=== PATIENT | female | born 1995 | race Caucasian/White ===

== ENCOUNTER 2022-05-18 19:22 | Emergency (ER) | payer MEDICAID, OTHER ==
[~2022-05-18] VITALS: Ht 152.4 cm; Wt 59.0 kg
[~2022-05-18 19:22] MED LIST: ACHD5005 PO; ACYC400T21 PO; CEPH500T PO; DOCU-143 PO; DOCU100C37 PO; DOXY25TA56 PO; HYDR-4226 PO; IBUP-1780 PO; Magic Mouth Wash PO; OXYC-556 PO; OXYC1TAB12 PO; PNV91TAB3 PO; PREN1TAB79 PO; UNISOM25 M1 PO; [UNRECOGNIZED DRUG - OTHER] PO; lidocain; magic mouth wash PO
[2022-05-18 19:34] VITALS: BP 119/92
--- NOTE | 2022-05-18 19:37 | ED General ---
General Chief Complaint: General Problems/Pain Stated Complaint: JOINT PAIN History of Present Illness Date Seen by Provider: May 18, 2022 Time Seen by Provider: 19:32 Initial Comments 27-year-old female is here with complaints of multiple joint pains which began around 10 days ago. Patient has joint pain and swelling of her elbows, wrists, knee, ankle, and appears to be migratory in nature. Denies falls, injury, trauma, fever and chills, rashes, abdominal pain, recent sore throat, cardiac issues, nausea and vomiting, diarrhea or constipation. Patient has not had any history of recent travel or known sick contacts. Patient takes naproxen at home for the pain with moderate relief. Patient states that she has requisition approver stiffness in her joints as well. Patient has a family history of arthritis in her mother and aunts. Allergies and Home Medications Patient Home Medication List Home Medication List Reviewed: Yes Review of Systems Review of Systems Constitutional: no symptoms reported EENTM: no symptoms reported Respiratory: no symptoms reported Cardiovascular: no symptoms reported Gastrointestinal: no symptoms reported Genitourinary: no symptoms reported Musculoskeletal: joint pain, joint swelling Skin: no symptoms reported Psychiatric/Neurological: No Symptoms Reported Hematologic/Lymphatic: No Symptoms Reported Immunological/Allergic: no symptoms reported Physical Exam Vital Signs Vital Signs - First Documented 05/18/22 19:34 Temp 37.0 Pulse 126 Resp 16 B/P (MAP) 119/92 (101) Capillary Refill : Height, Weight, BMI Height: '" Weight: lbs. oz. kg; BMI Method: General Appearance: No Apparent Distress, WD/WN HEENT: PERRL/EOMI, Pharynx Normal Neck: Full Range of Motion, Normal Inspection, Non Tender, Supple Respiratory: Chest Non Tender, Lungs Clear Cardiovascular: Regular Rate, Rhythm, No Edema Gastrointestinal: Normal Bowel Sounds, Non Tender, Soft Back: Normal Inspection, No Vertebral Tenderness Extremity: Swelling (Swelling in bilateral wrists, right elbow, bilateral ankles. No erythema, not warm to touch. Painful and sore on movement. Range of motion unrestricted but painful) Neurologic/Psychiatric: Alert, Oriented x3, No Motor/Sensory Deficits Skin: Normal Color (No rashes) Progress/Results/Core Measures Suspected Sepsis SIRS Temperature: Pulse: Respiratory Rate: Blood Pressure / Mean: Results/Orders Vital Signs/I&O 05/18/22 19:34 Temp 37.0 Pulse 126 Resp 16 B/P (MAP) 119/92 (101) Capillary Refill : Progress Note : Progress Note 1. ARTHRITIS: - Toradol 30mg im STAT -Follow-up with PCP and also make an appointment with lead advisor within the next 1 week. Patient will need an assessment for arthritis and i mmunodeficiency. -Advised [id number] Voltaren gel and Lidoderm patches. Use gel when not using the patches. -The patient was seen in the ED, and treated appropriately to presentation at a specific point in time. Patient is informed that there is a possibility that disease and illness can evolve and change in acuity rapidly or slowly after patient is discharged from the ER. Precautionary advice given to the patient for immediate return to ER if symptoms worsen or do not resolve, and to seek emergency care sooner rather than later. Pt also advised on the importance of PCP follow up and compliance with management and follow up plan with PCP and/or specialist, as this is part of the management plan. Pt verbally expressed understanding. Departure Impression Primary Impression: Arthritis Disposition: 01 HOME, SELF-CARE Condition: Stable Departure-Patient Inst. Referrals: NO,LOCAL PHYSICIAN (PCP/Family) Primary Care Physician Patient Instructions: ARTHRALGIA, Physical Activity for People With Arthritis Add. Discharge Instructions: -Follow-up with PCP and also make an appointment with lead advisor within the next 1 week. -Advised [id number] Voltaren gel and Lidoderm patches. Use gel when not using the patches. Heat application advised as well. All discharge instructions reviewed with patient and/or family. Voiced under standing. MILES BECERRA MD May 18, 2022 19:37
[2022-05-18] MEDS ORDERED: KETOROLAC 30 MG/ML VIAL IM ONE (20:00)
[2022-05-18] MEDS ORDERED: KETOROLAC 30 MG/ML VIAL ONE (20:11)
== END 2022-05-18 20:20 | disposition home or self-care (01) ==
LOC: ER FS 19:27
DX: M19.021 Primary osteoarthritis, right elbow (principal); M19.032 Primary osteoarthritis, left wrist; M19.031 Primary osteoarthritis, right wrist; M19.072 Primary osteoarthritis, left ankle and foot; M19.071 Primary osteoarthritis, right ankle and foot; Z28.310 Unvaccinated for COVID-19
CPT/HCPCS: 99284